=== PATIENT | female | born 1935 | race African-American/Black ===

== ENCOUNTER 2017-01-25 02:07 | Inpatient (IN) | payer MEDICARE, OTHER ==
[2017-01-25] VITALS (10 sets, daily range): BP systolic 130–210; BP diastolic 64–126
[~2017-01-25] VITALS: Ht 160 cm; Wt 76.8 kg
[~2017-01-25 02:07] MED LIST: AMLO10TA80 PO; GLYB5TAB7 PO
[2017-01-25] MEDS ORDERED: SODIUM CHLORIDE 0.9% 1,000 ML IV ONE (02:53)
[2017-01-25 03:27] LABS: BASOPHILS % 0.3 % (0.0-2.0); HEMATOCRIT. 28.3 % (36.0-48.0); HEMOGLOBIN. 8.8 g/dL (12.0-16.0); LYMPHOCYTES % 17.9 % (20.0-50.0); MEAN CORPUSCULAR HEMOGLOBIN 26.7 pg (28.0-32.0); MEAN CORPUSCULAR VOLUME 85.6 fL (81.0-99.0); MEAN PLATELET VOLUME 9.2 fl (7.4-10.4); MONOCYTES % 9.8 % (2.0-8.0); PLATELET 122 x1000/uL (130-400); RED BLOOD CELL COUNT 3.31 mill/uL (4.2-5.4); RED CELL DISTRIBUTION WIDTH 15.3 % (11.6-14.6)
[2017-01-25 03:35] LABS: CARBON DIOXIDE 23 mEq/L (21-32); CHLORIDE 115 mEq/L (98-107); TROPONIN I 0.05 ng/mL (0.00-0.04)
[2017-01-25 03:46] LABS: CLARITY URINE CLOUDY (CLEAR); COLOR URINE YELLOW (YELLOW); GLUCOSE URINE NEGATIVE (NEGATIVE); KETONES URINE NEGATIVE (NEGATIVE); LEUKOCYTE ESTERASE URINE NEGATIVE (NEGATIVE); NITRITE URINE POSITIVE (NEGATIVE); OCCULT BLOOD URINE 1+ (NEGATIVE); PH URINE 6.5 (4.5-8.0); PROTEIN URINE 3+ (NEGATIVE); SPECIFIC GRAVITY URINE 1.012 (1.005-1.030); UROBILINOGEN URINE 0.2 E.U./dL (0.2-1.0)
[2017-01-25] MEDS ORDERED: SODIUM CHLORIDE 0.9% 1,000 ML IV SCH (03:47)
[2017-01-25] MEDS ORDERED: ASPIRIN 325MG TABLET PO ONE (04:30)
[2017-01-25] MEDS ORDERED: DOCUSATE SODIUM 100MG CAPSULE PO PRN (07:45)
[2017-01-25] MEDS ORDERED: DIPHENHYDRAMINE 50MG/ML VIAL IV PRN (07:45)
[2017-01-25] MEDS ORDERED: MORPHINE SULFATE 4 MG/ML CPJ (NOT FOR IM USE) IV PRN (07:45)
[2017-01-25] MEDS ORDERED: NA PHOS,M-B/NA PHOS,DI-BA ENEMA 118ML PR PRN (07:45)
[2017-01-25] MEDS ORDERED: TRAMADOL 50MG TABLET PO PRN (07:45)
[2017-01-25] MEDS ORDERED: CLONIDINE 0.1MG TABLET PO PRN (07:45)
[2017-01-25] MEDS ORDERED: MAGNESIUM/ALUMINUM HYDROXIDE/SIMETHICONE 30ML UDC PO PRN (07:45)
[2017-01-25] MEDS ORDERED: NITROGLYCERIN 0.4MG TABLET SL SL PRN (07:45)
[2017-01-25] MEDS ORDERED: ONDANSETRON HCL 4MG/2ML VIAL IV PRN (07:45)
[2017-01-25] MEDS ORDERED: ACETAMINOPHEN 325MG TABLET PO PRN (07:45)
[2017-01-25] MEDS ORDERED: IPRATROPIUM/ALBUTEROL 0.5-3(2.5)MG/3ML NEB INH PRN (07:45)
[2017-01-25] MEDS ORDERED: ZOLPIDEM TARTRATE 5MG TABLET PO PRN (07:45)
[2017-01-25] MEDS ORDERED: GUAIFENESIN 200MG/10ML SUGAR FREE UDC PO PRN (07:45)
[2017-01-25] MEDS ORDERED: SODIUM POLYSTYRENE SULFONATE 15 G/60 ML BOT PO NR (08:00)
[2017-01-25] MEDS: INSULIN LISPRO 100 UNITS/ML SUBCUT SCH ×4 (08:00→21:18)
[2017-01-25] MEDS ORDERED: DEXTROSE 50% WATER 50ML SYRINGE IV PRN (08:00)
[2017-01-25 08:19] LABS: *AMPHETAMINES SCREEN URINE NEGATIVE (NEGATIVE); *BARBITURATES SCREEN URINE NEGATIVE (NEGATIVE); *BENZODIAZEPINES SCREEN URINE NEGATIVE (NEGATIVE); *COCAINE SCREEN URINE NEGATIVE (NEGATIVE); CANNABINOID URINE SCREEN NEGATIVE (NEGATIVE); METHADONE URINE SCREEN NEGATIVE (NEGATIVE); OPIATES URINE SCREEN NEGATIVE (NEGATIVE); PHENCYCLIDINE URINE SCREEN NEGATIVE (NEGATIVE)
[2017-01-25 08:39] LABS: FOLIC ACID (FOLATE) SERUM 18.2 ng/mL (>5.38)
[2017-01-25] MEDS: ENOXAPARIN 30MG/0.3ML SYR SUBCUT SCH (10:25)
[2017-01-25] MEDS: PANTOPRAZOLE SODIUM 40 MG/VIAL IV SCH (10:25)
[2017-01-25] MEDS: IPRATROPIUM/ALBUTEROL 0.5-3(2.5)MG/3ML NEB HHN SCH (11:00)
[2017-01-25] MEDS ORDERED: NIFEDIPINE XL 60MG TAB PO SCH (11:00)
[2017-01-25 12:24] LABS: CREATINE KINASE 109 IU/L (26-192)
[2017-01-25] MEDS: BLOOD SUGAR DIAGNOSTIC STRIP TEST SCH ×3 (12:38→21:13)
[2017-01-25] MEDS: METOPROLOL TARTRATE 50MG TABLET PO SCH ×3 (14:23→21:01)
[2017-01-25] MEDS: CLONIDINE 0.1MG TABLET PO SCH ×2 (14:24→22:12)
[2017-01-25 14:55] LABS: TROPONIN I 0.07 ng/mL (0.00-0.04)
[2017-01-25] MEDS: NIFEDIPINE XL 60MG TAB PO SCH (21:03)
[2017-01-25 23:05] LABS: CREATINE KINASE MB FRACTION 2.7 ng/mL (0.5-3.6); TROPONIN I 0.05 ng/mL (0.00-0.04)
[2017-01-26] VITALS (14 sets, daily range): BP systolic 112–147; BP diastolic 52–76
[2017-01-26] MEDS: IPRATROPIUM/ALBUTEROL 0.5-3(2.5)MG/3ML NEB HHN SCH ×7 (00:45→20:40)
[2017-01-26 05:24] LABS: BASOPHILS % 0.5 % (0.0-2.0); EOSINOPHILS % 2.9 % (0.0-5.0); HEMATOCRIT. 25.1 % (36.0-48.0); HEMOGLOBIN. 7.8 g/dL (12.0-16.0); LYMPHOCYTES % 42.9 % (20.0-50.0); MEAN CORPUSCULAR HEMOGLOBIN 26.5 pg (28.0-32.0); MEAN CORPUSCULAR VOLUME 85.7 fL (81.0-99.0); MEAN PLATELET VOLUME 9.8 fl (7.4-10.4); MONOCYTES % 12.1 % (2.0-8.0); NEUTROPHILS % 41.6 % (40.0-76.0); PLATELET 114 x1000/uL (130-400); RED BLOOD CELL COUNT 2.93 mill/uL (4.2-5.4); RED CELL DISTRIBUTION WIDTH 15.7 % (11.6-14.6)
[2017-01-26] MEDS: CLONIDINE 0.1MG TABLET PO SCH ×3 (05:30→22:00)
[2017-01-26] MEDS: BLOOD SUGAR DIAGNOSTIC STRIP TEST SCH ×4 (07:30→21:14)
[2017-01-26] MEDS: INSULIN LISPRO 100 UNITS/ML SUBCUT SCH ×4 (08:00→21:30)
[2017-01-26 08:14] LABS: PHOSPHORUS 4.3 mg/dL (2.5-4.9)
[2017-01-26] MEDS ORDERED: SODIUM POLYSTYRENE SULFONATE 15 G/60 ML BOT PO SCH (08:30)
[2017-01-26] MEDS: NIFEDIPINE XL 60MG TAB PO SCH ×2 (09:34→21:32)
[2017-01-26] MEDS: ASPIRIN 325MG EC TABLET PO SCH (09:35)
[2017-01-26] MEDS: PANTOPRAZOLE SODIUM 40 MG/VIAL IV SCH (09:35)
[2017-01-26] MEDS: ENOXAPARIN 30MG/0.3ML SYR SUBCUT SCH (09:35)
[2017-01-26 13:12] LABS: A/G RATIO 1.3 (0.7-1.7); ALPHA-1-GLOBULIN 0.2 g/dL (0.0-0.4); ALPHA-2-GLOBULIN 0.6 g/dL (0.4-1.0); GAMMA GLOBULINS 1.3 g/dL (0.4-1.8); M-SPIKE Not Observed g/dL (Not Observed)
[2017-01-26] MEDS: METOPROLOL TARTRATE 50MG TABLET PO SCH (21:11)
[2017-01-27] VITALS (13 sets, daily range): BP systolic 121–147; BP diastolic 59–87
[2017-01-27] MEDS: IPRATROPIUM/ALBUTEROL 0.5-3(2.5)MG/3ML NEB HHN SCH ×4 (04:40→20:13)
[2017-01-27] MEDS: CLONIDINE 0.1MG TABLET PO SCH ×3 (06:05→21:22)
[2017-01-27 06:20] LABS: COMPLEMENT C3 96 mg/dL (82-167)
[2017-01-27] MEDS: METOPROLOL TARTRATE 50MG TABLET PO SCH ×2 (06:47→21:23)
[2017-01-27] MEDS: INSULIN LISPRO 100 UNITS/ML SUBCUT SCH ×4 (08:00→21:33)
[2017-01-27] MEDS: BLOOD SUGAR DIAGNOSTIC STRIP TEST SCH ×4 (08:11→21:34)
[2017-01-27] MEDS: ENOXAPARIN 30MG/0.3ML SYR SUBCUT SCH (08:23)
[2017-01-27] MEDS: ASPIRIN 325MG EC TABLET PO SCH (08:23)
[2017-01-27] MEDS: PANTOPRAZOLE SODIUM 40 MG/VIAL IV SCH (08:23)
[2017-01-27] MEDS: NIFEDIPINE XL 60MG TAB PO SCH ×2 (08:23→21:22)
[2017-01-27 12:03] LABS: BASOPHILS % 0.4 % (0.0-2.0); EOSINOPHILS % 3.2 % (0.0-5.0); HEMATOCRIT. 24.3 % (36.0-48.0); HEMOGLOBIN. 7.6 g/dL (12.0-16.0); LYMPHOCYTES % 36.4 % (20.0-50.0); MEAN CORPUSCULAR HEMOGLOBIN 26.6 pg (28.0-32.0); MEAN CORPUSCULAR VOLUME 84.7 fL (81.0-99.0); MEAN PLATELET VOLUME 9.5 fl (7.4-10.4); MONOCYTES % 14.8 % (2.0-8.0); NEUTROPHILS % 45.2 % (40.0-76.0); PLATELET 115 x1000/uL (130-400); RED BLOOD CELL COUNT 2.86 mill/uL (4.2-5.4)
[2017-01-27 12:17] LABS: PHOSPHORUS 4.4 mg/dL (2.5-4.9)
[2017-01-27] MEDS ORDERED: PNEUMOCOCCAL 23-VAL P-SAC VAC 0.5 ML IM ONE (12:30)
[2017-01-27] MEDS ORDERED: INFLUENZA VIRUS VACCINE 0.5ML SYR IM ONE (12:30)
[2017-01-27] MEDS ORDERED: EPOETIN ALFA 4000UNITS/ML VIAL SUBCUT NR (13:00)
[2017-01-28] VITALS: BP 130/71
[2017-01-28 02:00] VITALS: BP 129/70
[2017-01-28 04:00] VITALS: BP 140/88
[2017-01-28] MEDS: CLONIDINE 0.1MG TABLET PO SCH (05:54)
[2017-01-28 06:00] VITALS: BP 132/68
[2017-01-28 06:33] LABS: HEMOGLOBIN. 7.7 g/dL (12.0-16.0); MEAN CORPUSCULAR HEMOGLOBIN 27.2 pg (28.0-32.0); MEAN CORPUSCULAR VOLUME 84.4 fL (81.0-99.0); MEAN PLATELET VOLUME 9.8 fl (7.4-10.4); PLATELET 109 x1000/uL (130-400); RED BLOOD CELL COUNT 2.84 mill/uL (4.2-5.4); RED CELL DISTRIBUTION WIDTH 15.2 % (11.6-14.6)
[2017-01-28 06:54] LABS: PHOSPHORUS 4.4 mg/dL (2.5-4.9)
[2017-01-28] MEDS: INSULIN LISPRO 100 UNITS/ML SUBCUT SCH ×2 (07:37→12:17)
[2017-01-28] MEDS: BLOOD SUGAR DIAGNOSTIC STRIP TEST SCH ×2 (07:37→12:13)
[2017-01-28 08:00] VITALS: BP 132/68
[2017-01-28] MEDS: ASPIRIN 325MG EC TABLET PO SCH (08:06)
[2017-01-28] MEDS: METOPROLOL TARTRATE 50MG TABLET PO SCH (08:07)
[2017-01-28] MEDS: NIFEDIPINE XL 60MG TAB PO SCH (08:07)
[2017-01-28] MEDS: IPRATROPIUM/ALBUTEROL 0.5-3(2.5)MG/3ML NEB HHN SCH (09:00)
[2017-01-28 10:04] VITALS: BP 98/67
[2017-01-28 11:38] LABS: PLATELET ESTIMATE SLIGHTLY DECREASED
[2017-01-29 14:16] LABS: ALBUMIN URINE 64.5 % (.); ALPHA-1-GLOBULIN URINE 2.2 % (.); ALPHA-2-GLOBULIN URINE 6.9 % (.); BETA GLOBULIN URINE 10.2 % (.); GAMMA GLOBULIN URINE 16.2 % (.); TOTAL PROTEIN RANDOM URINE 385.5 mg/dL (Not Estab.)
== END 2017-01-28 12:15 | disposition home or self-care (01) | DRG 683 ==
LOC: ER 02:36 → 5EST 03:49 → EDBEDREQTM 03:54 → EDBEDREQ 03:54 → ENRESERV 04:21
PROVIDERS: ADMIT Internal Medicine; ATTEND Internal Medicine
DX: N17.0 Acute kidney failure with tubular necrosis (principal); G45.9 Transient cerebral ischemic attack, unspecified; D61.818 Other pancytopenia; E11.22 Type 2 diabetes mellitus with diabetic chronic kidney disease; E11.649 Type 2 diabetes mellitus with hypoglycemia without coma; E11.65 Type 2 diabetes mellitus with hyperglycemia; E87.5 Hyperkalemia; I12.9 Hypertensive chronic kidney disease with stage 1 through stage 4 chronic kidney disease, or unspecified chronic kidney disease; D64.9 Anemia, unspecified; N18.9 Chronic kidney disease, unspecified; Z82.49 Family history of ischemic heart disease and other diseases of the circulatory system; Z88.0 Allergy status to penicillin; Z90.710 Acquired absence of both cervix and uterus
CPT/HCPCS: 36415; 70450; 70551; 71010; 76770; 80048; 80053; 80061; 80305; 81001; 82550; 82553; 82570; 82607; 82728; 82746; 82962; 83036; 83540; 83550; 83735; 84100; 84155; 84156; 84165; 84166; 84484; 85025; 86160; 90686; 90732; 93005; 93306; 93880; 94640; 96360; 97162; 99285; C9113; J0885; J1650; J1815; J7030; J7620

== ENCOUNTER 2018-07-03 13:20 | Inpatient (IN) | payer OTHER ==
[~2018-07-03] VITALS: Ht 160 cm; Wt 72.6 kg
[2018-07-03] MEDS: SEVELAMER CARBONATE 800 MG TABLET PO SCH (09:30)
[2018-07-03 14:23] LABS: HEMATOCRIT. 34.6 % (36.0-48.0); HEMOGLOBIN. 11.2 g/dL (12.0-16.0); MEAN CORPUSCULAR HEMOGLOBIN 28.2 pg (28.0-32.0); MEAN CORPUSCULAR VOLUME 87.3 fL (81.0-99.0); MEAN PLATELET VOLUME 9.1 fl (7.4-10.4); PLATELET 178 x1000/uL (130-400); RED BLOOD CELL COUNT 3.96 mill/uL (4.2-5.4); RED CELL DISTRIBUTION WIDTH 15.2 % (11.6-14.6)
[2018-07-03 14:25] LABS: CHLORIDE 93 mEq/L (98-107)
[2018-07-03 14:36] LABS: PLATELET ESTIMATE NORMAL
[2018-07-03] MEDS ORDERED: ASPIRIN 81MG TABLET PO ONE (15:15)
[2018-07-03] MEDS ORDERED: DILTIAZEM HCL 90MG TABLET PO ONE (16:00)
[2018-07-03] MEDS ORDERED: DILTIAZEM HCL 5MG/ML 5ML VIAL IV ONE ×2 (16:00→17:00)
[2018-07-03] MEDS ORDERED: CLONIDINE 0.1MG TABLET PO PRN (16:15)
[2018-07-03] MEDS ORDERED: MAGNESIUM/ALUMINUM HYDROXIDE/SIMETHICONE 30ML UDC PO PRN (16:15)
[2018-07-03] MEDS ORDERED: IPRATROPIUM/ALBUTEROL 0.5-3(2.5)MG/3ML NEB INH PRN (16:15)
[2018-07-03] MEDS ORDERED: GUAIFENESIN 200MG/10ML SUGAR FREE UDC PO PRN (16:15)
[2018-07-03] MEDS ORDERED: DOCUSATE SODIUM 100MG CAPSULE PO PRN (16:15)
[2018-07-03] MEDS ORDERED: LORAZEPAM 0.5MG TABLET PO PRN (16:15)
[2018-07-03] MEDS ORDERED: DEXTROSE 50% WATER 50ML SYRINGE IV PRN (16:15)
[2018-07-03] MEDS ORDERED: MORPHINE SULFATE 4 MG/ML CPJ (NOT FOR IM USE) IV PRN (16:15)
[2018-07-03] MEDS ORDERED: TRAMADOL 50MG TABLET PO PRN (16:15)
[2018-07-03] MEDS ORDERED: POTASSIUM CHLORIDE 20MEQ TABLET SR PO SCH (16:15)
[2018-07-03] MEDS ORDERED: NITROGLYCERIN 0.4MG TABLET SL SL PRN (16:15)
[2018-07-03] MEDS ORDERED: ZOLPIDEM TARTRATE 5MG TABLET PO PRN (16:15)
[2018-07-03] MEDS ORDERED: DIPHENHYDRAMINE 50MG/ML VIAL IV PRN (16:15)
[2018-07-03] MEDS ORDERED: ONDANSETRON HCL 4MG/2ML INJ IV PRN (16:15)
[2018-07-03] MEDS ORDERED: ACETAMINOPHEN 325MG TABLET PO PRN (16:15)
[2018-07-03 17:03] LABS: PARTIAL THROMBOPLASTIN TIME 26.9 sec (23.4-31.0); PROTHROMBIN TIME 10.3 sec (9.1-11.1)
[2018-07-03] MEDS: BLOOD SUGAR DIAGNOSTIC STRIP TEST SCH ×2 (17:26→21:15)
[2018-07-03] MEDS ORDERED: DILTIAZEM HCL 125 MG in DEXT 5% WATER 100 ML IV ONE (17:45)
[2018-07-03 22:30] VITALS: BP 145/83
[2018-07-03 23:00] VITALS: BP 145/83
[2018-07-03] MEDS ORDERED: ENOXAPARIN 80MG/0.8ML SYR SUBCUT SCH (23:00)
[2018-07-04] VITALS (11 sets, daily range): BP systolic 102–138; BP diastolic 52–69
[2018-07-04] MEDS ORDERED: GLYB (00:17)
[2018-07-04] MEDS: SILDENAFIL CITRATE 20MG TABLET PO SCH ×4 (01:08→21:36)
[2018-07-04] MEDS: DILTIAZEM HCL 60MG TABLET PO SCH ×2 (01:09→05:49)
[2018-07-04 01:27] LABS: CREATINE KINASE MB FRACTION 5.9 ng/mL (0.5-3.6)
[2018-07-04] MEDS: INSULIN LISPRO 100 UNITS/ML SUBCUT SCH ×5 (06:09→21:00)
[2018-07-04 06:39] LABS: CREATINE KINASE MB FRACTION 4.9 ng/mL (0.5-3.6)
[2018-07-04] MEDS: BLOOD SUGAR DIAGNOSTIC STRIP TEST SCH ×4 (08:25→21:32)
[2018-07-04] MEDS: SEVELAMER CARBONATE 800 MG TABLET PO SCH ×3 (08:26→17:39)
[2018-07-04] MEDS: FAMOTIDINE 20MG TABLET PO SCH (08:26)
[2018-07-04] MEDS: ASPIRIN 325MG EC TABLET PO SCH (08:26)
[2018-07-04] MEDS: FOLIC ACID/VITAMIN B COMP W-C TABLET PO SCH (08:26)
[2018-07-04] MEDS: METOPROLOL TARTRATE 50MG TABLET PO SCH (21:00)
[2018-07-04] MEDS: ATORVASTATIN CALCIUM 20MG TABLET PO SCH (21:32)
[2018-07-05] VITALS (10 sets, daily range): BP systolic 106–167; BP diastolic 31–88
[2018-07-05] MEDS: SILDENAFIL CITRATE 20MG TABLET PO SCH ×3 (06:00→21:09)
[2018-07-05] MEDS: SEVELAMER CARBONATE 800 MG TABLET PO SCH ×3 (08:00→17:19)
[2018-07-05] MEDS: INSULIN LISPRO 100 UNITS/ML SUBCUT SCH ×4 (08:00→20:59)
[2018-07-05] MEDS: BLOOD SUGAR DIAGNOSTIC STRIP TEST SCH ×4 (08:40→20:59)
[2018-07-05] MEDS: FOLIC ACID/VITAMIN B COMP W-C TABLET PO SCH (08:41)
[2018-07-05] MEDS: ASPIRIN 325MG EC TABLET PO SCH (08:41)
[2018-07-05] MEDS: METOPROLOL TARTRATE 50MG TABLET PO SCH ×2 (08:41→21:00)
[2018-07-05] MEDS: FAMOTIDINE 20MG TABLET PO SCH (08:41)
[2018-07-05 09:17] LABS: BASOPHILS % 0.4 % (0.0-2.0); EOSINOPHILS % 2.2 % (0.0-5.0); HEMATOCRIT. 32.2 % (36.0-48.0); HEMOGLOBIN. 10.5 g/dL (12.0-16.0); LYMPHOCYTES % 39.7 % (20.0-50.0); MEAN CORPUSCULAR HEMOGLOBIN 28.6 pg (28.0-32.0); MEAN CORPUSCULAR VOLUME 87.6 fL (81.0-99.0); MEAN PLATELET VOLUME 9.1 fl (7.4-10.4); MONOCYTES % 13.5 % (2.0-8.0); NEUTROPHILS % 44.2 % (40.0-76.0); PLATELET 133 x1000/uL (130-400); RED BLOOD CELL COUNT 3.68 mill/uL (4.2-5.4); RED CELL DISTRIBUTION WIDTH 15.8 % (11.6-14.6)
[2018-07-05 09:32] LABS: CHLORIDE 96 mEq/L (98-107)
[2018-07-05 09:43] LABS: PHOSPHORUS 2.7 mg/dL (2.5-4.9)
[2018-07-05 09:45] LABS: CREATINE KINASE 60 IU/L (26-192)
[2018-07-05 09:48] LABS: CREATINE KINASE MB FRACTION 1.3 ng/mL (0.5-3.6)
[2018-07-05] MEDS ORDERED: HEPARIN SODIUM 1,000 UNIT/1ML VIAL IV ONE (12:00)
[2018-07-05] MEDS ORDERED: NICARDIPINE 100MCG/ML 10ML VIAL (CATH LAB) IV ONE ×2 (12:00)
[2018-07-05 12:07] LABS: HEMATOCRIT 32.8 % (36.0-48.0); HEMOGLOBIN 10.6 g/dL (12.0-16.0); MEAN CORPUSCULAR HEMOGLOBIN 28.5 pg (28.0-32.0); MEAN CORPUSCULAR VOLUME 88.4 fL (81.0-99.0); PLATELET 129 x1000/uL (130-400); RED BLOOD CELL COUNT 3.71 mill/uL (4.2-5.4); RED CELL DISTRIBUTION WIDTH 15.3 % (11.6-14.6)
[2018-07-05] MEDS ORDERED: LIDOCAINE HCL 1% 20ML VIAL (Pyxis) INJ ONE (13:40)
[2018-07-05] MEDS ORDERED: ASPIRIN/SOD BICARB/CITRIC ACID 324MG TAB EFF ONE (13:40)
[2018-07-05] MEDS ORDERED: IODIXANOL 320MG/ML 100 ML BOTTLE IV ONE (13:41)
[2018-07-05] MEDS ORDERED: IOHEXOL-300 100 ML BOTTLE ONE (13:41)
[2018-07-05] MEDS ORDERED: FENTANYL CITRATE/PF 50MCG/ML 2ML VIAL ONE (14:01)
[2018-07-05] MEDS ORDERED: MIDAZOLAM HCL 2 MG/2 ML VIAL ONE (14:02)
[2018-07-05] MEDS ORDERED: ACETAMINOPHEN 325MG TABLET PO PRN (15:00)
[2018-07-05] MEDS ORDERED: ATROPINE SULFATE 1MG/10ML SYR IV PRN (15:00)
[2018-07-05] MEDS ORDERED: ONDANSETRON HCL 4MG/2ML INJ IV PRN (15:00)
[2018-07-05] MEDS ORDERED: MORPHINE SULFATE 4 MG/ML CPJ (NOT FOR IM USE) IV PRN (15:00)
[2018-07-05] MEDS: ATORVASTATIN CALCIUM 20MG TABLET PO SCH (21:09)
[2018-07-06] VITALS (9 sets, daily range): BP systolic 116–158; BP diastolic 35–70
[2018-07-06] MEDS: INSULIN LISPRO 100 UNITS/ML SUBCUT SCH ×2 (06:05→11:37)
[2018-07-06] MEDS: BLOOD SUGAR DIAGNOSTIC STRIP TEST SCH ×2 (06:05→11:37)
[2018-07-06] MEDS: SILDENAFIL CITRATE 20MG TABLET PO SCH (06:11)
[2018-07-06 07:28] LABS: HEMATOCRIT. 33.6 % (36.0-48.0); HEMOGLOBIN. 11.1 g/dL (12.0-16.0); MEAN CORPUSCULAR HEMOGLOBIN 29.1 pg (28.0-32.0); PLATELET 136 x1000/uL (130-400); RED BLOOD CELL COUNT 3.82 mill/uL (4.2-5.4); RED CELL DISTRIBUTION WIDTH 15.5 % (11.6-14.6)
[2018-07-06] MEDS: FAMOTIDINE 20MG TABLET PO SCH (08:57)
[2018-07-06] MEDS: SEVELAMER CARBONATE 800 MG TABLET PO SCH ×2 (08:57→12:46)
[2018-07-06] MEDS: FOLIC ACID/VITAMIN B COMP W-C TABLET PO SCH (08:57)
[2018-07-06] MEDS: METOPROLOL TARTRATE 50MG TABLET PO SCH (08:58)
[2018-07-06] MEDS: ASPIRIN 325MG EC TABLET PO SCH (09:04)
[2018-07-07 07:05] LABS: NUCLEATED RED BLOOD CELLS 1 /100 WBC; PLATELET ESTIMATE NORMAL
== END 2018-07-06 14:16 | disposition home or self-care (01) | DRG 280 ==
LOC: ER 13:20 → 5EST 15:51 → SUPCPDRO 16:00 → ENRESERV 20:49 → 3WST 07-05 15:30
PROVIDERS: ADMIT Internal Medicine; ATTEND Internal Medicine
PROC: 5A1D70Z Performance of Urinary Filtration, Intermittent, Less than 6 Hours Per Day (ICD-10-PCS; 2018-07-04)
PROC: 4A023N7 Measurement of Cardiac Sampling and Pressure, Left Heart, Percutaneous Approach (ICD-10-PCS; principal; 2018-07-05)
PROC: B2111ZZ Fluoroscopy of Multiple Coronary Arteries using Low Osmolar Contrast (ICD-10-PCS; 2018-07-05)
DX: I21.4 Non-ST elevation (NSTEMI) myocardial infarction (principal); N18.6 End stage renal disease; I12.0 Hypertensive chronic kidney disease with stage 5 chronic kidney disease or end stage renal disease; I48.0 Paroxysmal atrial fibrillation; D70.9 Neutropenia, unspecified; E78.00 Pure hypercholesterolemia, unspecified; E87.6 Hypokalemia; D63.8 Anemia in other chronic diseases classified elsewhere; E11.22 Type 2 diabetes mellitus with diabetic chronic kidney disease; I27.20 Pulmonary hypertension, unspecified; Z96.649 Presence of unspecified artificial hip joint; E78.5 Hyperlipidemia, unspecified; M79.89 Other specified soft tissue disorders; Z79.4 Long term (current) use of insulin; Z82.49 Family history of ischemic heart disease and other diseases of the circulatory system; Z86.73 Personal history of transient ischemic attack (TIA), and cerebral infarction without residual deficits; Z87.891 Personal history of nicotine dependence; Z90.710 Acquired absence of both cervix and uterus; Z99.2 Dependence on renal dialysis; Z88.0 Allergy status to penicillin; Z90.722 Acquired absence of ovaries, bilateral; Z79.899 Other long term (current) drug therapy; Z90.79 Acquired absence of other genital organ(s); Z72.89 Other problems related to lifestyle
CPT/HCPCS: 36415; 70551; 71045; 80048; 80051; 80061; 82550; 82553; 82962; 83036; 83735; 84100; 84443; 84484; 85027; 85379; 93005; 93306; 93458; 93970; 96372; 96374; 99291; C1769; C1887; C1893; J1644; J1650; J1815; J2250; J2270; J3010; J3490; J7060; Q9967

== ENCOUNTER 2018-12-24 02:22 | Emergency (ER) | payer OTHER ==
[~2018-12-24] VITALS: Ht 160 cm; Wt 70.0 kg
[~2018-12-24 02:22] MED LIST changes: -AMLO10TA80 PO; +GLYB; -GLYB5TAB7 PO
[2018-12-24 03:36] LABS: BASOPHILS % 0.6 % (0.0-2.0); EOSINOPHILS % 0.5 % (0.0-5.0); HEMATOCRIT. 31.1 % (36.0-48.0); HEMOGLOBIN. 10.2 g/dL (12.0-16.0); LYMPHOCYTES % 15.9 % (20.0-50.0); MEAN CORPUSCULAR VOLUME 88.9 fL (81.0-99.0); MEAN PLATELET VOLUME 8.3 fl (7.4-10.4); MONOCYTES % 14.7 % (2.0-8.0); NEUTROPHILS % 68.3 % (40.0-76.0); PLATELET 130 x1000/uL (130-400); RED CELL DISTRIBUTION WIDTH 16.2 % (11.6-14.6)
[2018-12-24 03:41] LABS: CHLORIDE 105 mEq/L (98-107)
[2018-12-24 03:44] LABS: PROTHROMBIN TIME 10.3 sec (9.6-11.0)
[2018-12-24] MEDS ORDERED: DEXTROSE 50% WATER 50ML SYRINGE IV ONE ×2 (04:06→04:15)
[2018-12-24 13:00] VITALS: BP 147/51
== END 2018-12-24 14:36 | disposition home or self-care (01) ==
LOC: ER 02:22
DX: E11.40 Type 2 diabetes mellitus with diabetic neuropathy, unspecified (principal); E11.649 Type 2 diabetes mellitus with hypoglycemia without coma; I12.0 Hypertensive chronic kidney disease with stage 5 chronic kidney disease or end stage renal disease; E11.22 Type 2 diabetes mellitus with diabetic chronic kidney disease; N18.6 End stage renal disease; Z99.2 Dependence on renal dialysis; Z88.0 Allergy status to penicillin
CPT/HCPCS: 36415; 82962; 83735; 93005; 96374; 99283

== ENCOUNTER 2019-02-05 14:32 | Inpatient (IN) | payer OTHER ==
[~2019-02-05] VITALS: Ht 160 cm; Wt 68.9 kg
[2019-02-05] MEDS ORDERED: SODIUM CHLORIDE 0.9% 1,000 ML IV ONE (15:09)
[2019-02-05] MEDS ORDERED: DILTIAZEM HCL 5MG/ML 5ML VIAL IV ONE (15:15)
[2019-02-05 15:27] LABS: HEMATOCRIT. 36.4 % (36.0-48.0); HEMOGLOBIN. 11.8 g/dL (12.0-16.0); MEAN CORPUSCULAR HEMOGLOBIN 28.9 pg (28.0-32.0); MEAN PLATELET VOLUME 8.4 fl (7.4-10.4); PLATELET 114 x1000/uL (130-400); RED BLOOD CELL COUNT 4.09 mill/uL (4.2-5.4)
[2019-02-05 15:34] LABS: CHLORIDE 99 mEq/L (98-107)
[2019-02-05 15:54] LABS: PLATELET ESTIMATE DECREASED
[2019-02-05] MEDS ORDERED: DILTIAZEM HCL 60MG TABLET PO ONE (16:00)
[2019-02-05] MEDS ORDERED: ENOXAPARIN 60MG/0.6ML SYR SUBCUT ONE (16:30)
[2019-02-05 17:50] VITALS: BP 116/68
[2019-02-05 18:00] VITALS: BP 116/68
[2019-02-05] MEDS ORDERED: HYDROCODONE/ACETAMINOPHEN 5/325MG TABLET PO PRN (18:15)
[2019-02-05] MEDS ORDERED: ENOXAPARIN 40MG/0.4ML SYR SUBCUT SCH (18:15)
[2019-02-05] MEDS ORDERED: LORAZEPAM 2MG/ML CPJ IV PRN (18:15)
[2019-02-05] MEDS ORDERED: DOCUSATE SODIUM 100MG CAPSULE PO PRN (18:15)
[2019-02-05] MEDS ORDERED: DILTIAZEM HCL 30MG TABLET PO PRN (18:15)
[2019-02-05] MEDS ORDERED: ONDANSETRON HCL 4MG/2ML INJ IV PRN (18:15)
[2019-02-05] MEDS ORDERED: MAGNESIUM/ALUMINUM HYDROXIDE/SIMETHICONE 30ML UDC PO PRN (18:15)
[2019-02-05] MEDS ORDERED: MORPHINE SULFATE 2 MG/ML CPJ (NOT FOR IM USE) IV PRN (18:15)
[2019-02-05] MEDS ORDERED: CLONIDINE 0.1MG TABLET PO PRN (18:15)
[2019-02-05] MEDS ORDERED: ACETAMINOPHEN 325MG TABLET PO PRN (18:15)
[2019-02-05 20:00] VITALS: BP 137/64
[2019-02-05] MEDS ORDERED: ENOXAPARIN 30MG/0.3ML SYR SUBCUT SCH (20:00)
[2019-02-05] MEDS ORDERED: DEXTROSE 50% WATER 50ML SYRINGE IV PRN (21:30)
[2019-02-06 00:02] VITALS: BP 126/66
[2019-02-06 01:02] LABS: CREATINE KINASE MB FRACTION 6.5 ng/mL (0.5-3.6)
[2019-02-06 04:00] VITALS: BP 117/59
[2019-02-06] MEDS: INSULIN LISPRO 100 UNITS/ML SUBCUT SCH ×4 (05:48→20:42)
[2019-02-06] MEDS: BLOOD SUGAR DIAGNOSTIC STRIP TEST SCH ×4 (05:48→20:41)
[2019-02-06 08:00] VITALS: BP 117/58
[2019-02-06] MEDS ORDERED: ENOXAPARIN 30MG/0.3ML SYR SUBCUT SCH ×2 (09:00→10:15)
[2019-02-06] MEDS: ASPIRIN 81MG EC TABLET PO SCH (10:15)
[2019-02-06] MEDS: METOPROLOL TARTRATE 25MG TABLET PO SCH ×2 (12:23→21:02)
[2019-02-06 13:02] LABS: HEMOGLOBIN. 10.8 g/dL (12.0-16.0); MEAN CORPUSCULAR HEMOGLOBIN 29.2 pg (28.0-32.0); MEAN CORPUSCULAR VOLUME 89.3 fL (81.0-99.0); MEAN PLATELET VOLUME 9.3 fl (7.4-10.4); PLATELET 115 x1000/uL (130-400); RED BLOOD CELL COUNT 3.69 mill/uL (4.2-5.4); RED CELL DISTRIBUTION WIDTH 15.2 % (11.6-14.6)
[2019-02-06 13:06] LABS: CHLORIDE 102 mEq/L (98-107)
[2019-02-06 13:10] VITALS: BP 121/61
[2019-02-06 13:14] LABS: LDL CHOLESTEROL 103 mg/dL (5-100)
[2019-02-06 13:15] LABS: CREATINE KINASE 83 IU/L (26-192); CREATINE KINASE MB FRACTION 3.2 ng/mL (0.5-3.6)
[2019-02-06 13:16] LABS: HDL CHOLESTEROL 89 mg/dL (40-59)
[2019-02-06 13:20] LABS: ATYPICAL LYMPHOCYTES 1; PLATELET ESTIMATE DECREASED
[2019-02-06 16:50] VITALS: BP 128/62
[2019-02-06] MEDS: APIXABAN 2.5 MG TABLET PO SCH (17:43)
[2019-02-06 20:24] VITALS: BP 126/60
[2019-02-07] VITALS: BP 133/70
[2019-02-07 04:00] VITALS: BP 156/73
[2019-02-07 06:34] LABS: HEMATOCRIT. 32.7 % (36.0-48.0); HEMOGLOBIN. 10.7 g/dL (12.0-16.0); MEAN CORPUSCULAR HEMOGLOBIN 29.1 pg (28.0-32.0); MEAN CORPUSCULAR VOLUME 88.6 fL (81.0-99.0); MEAN PLATELET VOLUME 9.2 fl (7.4-10.4); PLATELET 131 x1000/uL (130-400); RED BLOOD CELL COUNT 3.69 mill/uL (4.2-5.4); RED CELL DISTRIBUTION WIDTH 14.5 % (11.6-14.6)
[2019-02-07] MEDS: INSULIN LISPRO 100 UNITS/ML SUBCUT SCH ×3 (06:43→17:40)
[2019-02-07] MEDS: BLOOD SUGAR DIAGNOSTIC STRIP TEST SCH ×3 (06:43→17:10)
[2019-02-07 08:00] VITALS: BP 139/62
[2019-02-07 08:39] LABS: NUCLEATED RED BLOOD CELLS 3 /100 WBC; PLATELET ESTIMATE NORMAL
[2019-02-07 08:44] LABS: CHLORIDE 100 mEq/L (98-107)
[2019-02-07] MEDS: APIXABAN 2.5 MG TABLET PO SCH ×2 (08:56→17:00)
[2019-02-07] MEDS: METOPROLOL TARTRATE 25MG TABLET PO SCH (08:57)
[2019-02-07] MEDS: ASPIRIN 81MG EC TABLET PO SCH (08:59)
[2019-02-07 09:02] LABS: CREATINE KINASE 66 IU/L (26-192)
[2019-02-07 09:06] LABS: LDL CHOLESTEROL 96 mg/dL (5-100); PHOSPHORUS 4.9 mg/dL (2.5-4.9)
[2019-02-07 09:08] LABS: HDL CHOLESTEROL 85 mg/dL (40-59)
[2019-02-07 09:12] LABS: CREATINE KINASE MB FRACTION 1.3 ng/mL (0.5-3.6)
[2019-02-07 15:26] VITALS: BP 137/60
[2019-02-07] MEDS ORDERED: GLYB5TAB7 PO (16:53)
== END 2019-02-07 18:05 | disposition home or self-care (01) | DRG 280 ==
LOC: ER 14:32 → 8WST 16:21 → ENRESERV 16:55
PROVIDERS: ADMIT Hospitalist; ATTEND Hospitalist
PROC: 5A1D70Z Performance of Urinary Filtration, Intermittent, Less than 6 Hours Per Day (ICD-10-PCS; principal; 2019-02-07)
DX: I21.4 Non-ST elevation (NSTEMI) myocardial infarction (principal); N18.6 End stage renal disease; I12.0 Hypertensive chronic kidney disease with stage 5 chronic kidney disease or end stage renal disease; D61.818 Other pancytopenia; N25.81 Secondary hyperparathyroidism of renal origin; I48.0 Paroxysmal atrial fibrillation; D63.1 Anemia in chronic kidney disease; E87.6 Hypokalemia; I27.20 Pulmonary hypertension, unspecified; E11.22 Type 2 diabetes mellitus with diabetic chronic kidney disease; I95.9 Hypotension, unspecified; E78.5 Hyperlipidemia, unspecified; F10.10 Alcohol abuse, uncomplicated; I35.0 Nonrheumatic aortic (valve) stenosis; Z82.49 Family history of ischemic heart disease and other diseases of the circulatory system; Z83.3 Family history of diabetes mellitus; I25.2 Old myocardial infarction; Z87.891 Personal history of nicotine dependence; Z90.5 Acquired absence of kidney; Z90.710 Acquired absence of both cervix and uterus; Z99.2 Dependence on renal dialysis; Z88.0 Allergy status to penicillin
CPT/HCPCS: 36415; 71045; 80061; 82550; 82553; 82962; 83036; 83735; 83880; 84100; 84439; 84443; 84484; 93005; 93306; 93970; 97161; 99291; J1650; J3490; J7030

== ENCOUNTER 2019-06-26 10:46 | Inpatient (IN) | payer OTHER ==
[~2019-06-26] VITALS: Ht 160 cm; Wt 72.6 kg
[~2019-06-26 10:46] MED LIST changes: -GLYB; +GLYB5TAB7 PO
[2019-06-26] MEDS ORDERED: SODIUM CHLORIDE 0.9% 500 ML IV ONE (10:57)
[2019-06-26] MEDS ORDERED: AMIODARONE HCL 150 MG in DEXT 5% WATER 100 ML IV ONE (11:30)
[2019-06-26 11:39] LABS: BASOPHILS % 0.7 % (0.0-2.0); EOSINOPHILS % 3.6 % (0.0-5.0); HEMATOCRIT. 30.3 % (36.0-48.0); HEMOGLOBIN. 9.8 g/dL (12.0-16.0); LYMPHOCYTES % 33.6 % (20.0-50.0); MEAN CORPUSCULAR VOLUME 89.2 fL (81.0-99.0); MEAN PLATELET VOLUME 8.6 fl (7.4-10.4); MONOCYTES % 9.7 % (2.0-8.0); NEUTROPHILS % 52.4 % (40.0-76.0); PLATELET 151 x1000/uL (130-400); RED BLOOD CELL COUNT 3.39 mill/uL (4.2-5.4); RED CELL DISTRIBUTION WIDTH 16.1 % (11.6-14.6)
[2019-06-26 11:40] LABS: CHLORIDE 105 mEq/L (98-107)
[2019-06-26] MEDS ORDERED: AMIODARONE HCL 900 MG in DEXT 5% WATER 500 ML IV ONE (12:15)
[2019-06-26] MEDS ORDERED: AMIODARONE HCL 900 MG in DEXT 5% WATER 482 ML IV ONE (12:15)
[2019-06-26] MEDS ORDERED: DOCUSATE SODIUM 100MG CAPSULE PO PRN (12:45)
[2019-06-26] MEDS ORDERED: MAGNESIUM/ALUMINUM HYDROXIDE/SIMETHICONE 30ML UDC PO PRN (12:45)
[2019-06-26] MEDS ORDERED: CLONIDINE 0.1MG TABLET PO PRN (12:45)
[2019-06-26] MEDS ORDERED: TRAMADOL 50MG TABLET PO PRN (12:45)
[2019-06-26] MEDS ORDERED: ZOLPIDEM TARTRATE 5MG TABLET PO PRN (12:45)
[2019-06-26] MEDS ORDERED: DEXTROSE 50% WATER 50ML SYRINGE IV PRN (12:45)
[2019-06-26] MEDS ORDERED: GUAIFENESIN 200MG/10ML SUGAR FREE UDC PO PRN (12:45)
[2019-06-26] MEDS ORDERED: MORPHINE SULFATE 2 MG/ML CPJ (NOT FOR IM USE) IV PRN (12:45)
[2019-06-26] MEDS ORDERED: ACETAMINOPHEN 325MG TABLET PO PRN (12:45)
[2019-06-26] MEDS ORDERED: ONDANSETRON HCL 4MG/2ML INJ IV PRN (12:45)
[2019-06-26] MEDS ORDERED: DIPHENHYDRAMINE 50MG/ML VIAL IV PRN (12:45)
[2019-06-26] MEDS ORDERED: IPRATROPIUM/ALBUTEROL 0.5-3(2.5)MG/3ML NEB NEB PRN (12:45)
[2019-06-26] MEDS ORDERED: NITROGLYCERIN 0.4MG TABLET SL SL PRN (12:45)
[2019-06-26] MEDS ORDERED: SODIUM POLYSTYRENE SULFONATE 15 G/60 ML BOT PO NR (14:00)
[2019-06-26] MEDS ORDERED: SEVELAMER CARBONATE 800 MG TABLET PO SCH (14:00)
[2019-06-26] MEDS: BLOOD SUGAR DIAGNOSTIC STRIP TEST SCH ×2 (14:37→21:10)
[2019-06-26] MEDS: INSULIN LISPRO 100 UNITS/ML SUBCUT SCH ×3 (14:43→21:09)
[2019-06-26 17:55] LABS: CREATINE KINASE MB FRACTION 1.5 ng/mL (0.5-3.6)
[2019-06-26] MEDS ORDERED: APIXABAN 5 MG TABLET PO SCH ×2 (18:00)
[2019-06-26] MEDS: AMIODARONE HCL 200 MG TABLET PO SCH (21:10)
[2019-06-26] MEDS: APIXABAN 2.5 MG TABLET PO SCH (21:10)
[2019-06-26] MEDS: SEVELAMER CARBONATE 800 MG TABLET PO SCH (21:11)
[2019-06-26 21:40] VITALS: BP 151/66
[2019-06-26 22:00] VITALS: BP 176/82
[2019-06-26 22:08] VITALS: BP 149/76
[2019-06-26 22:16] VITALS: BP 148/69
[2019-06-26 23:47] LABS: CREATINE KINASE MB FRACTION 1.6 ng/mL (0.5-3.6)
[2019-06-27] VITALS (12 sets, daily range): BP systolic 113–167; BP diastolic 54–91
[2019-06-27] MEDS: BLOOD SUGAR DIAGNOSTIC STRIP TEST SCH ×4 (05:31→20:12)
[2019-06-27 06:46] LABS: BASOPHILS % 0.4 % (0.0-2.0); HEMATOCRIT. 24.5 % (36.0-48.0); HEMOGLOBIN. 8.2 g/dL (12.0-16.0); LYMPHOCYTES % 28.3 % (20.0-50.0); MEAN CORPUSCULAR VOLUME 87.3 fL (81.0-99.0); MEAN PLATELET VOLUME 8.6 fl (7.4-10.4); MONOCYTES % 10.3 % (2.0-8.0); PLATELET 139 x1000/uL (130-400); RED BLOOD CELL COUNT 2.81 mill/uL (4.2-5.4); RED CELL DISTRIBUTION WIDTH 16.1 % (11.6-14.6)
[2019-06-27 07:20] LABS: PHOSPHORUS 5.4 mg/dL (2.5-4.9)
[2019-06-27] MEDS: INSULIN LISPRO 100 UNITS/ML SUBCUT SCH ×4 (07:20→20:13)
[2019-06-27] MEDS ORDERED: ASPIRIN 81MG EC TABLET PO SCH (09:00)
[2019-06-27] MEDS: APIXABAN 2.5 MG TABLET PO SCH ×2 (09:45→17:18)
[2019-06-27] MEDS: FOLIC ACID/VITAMIN B COMP W-C TABLET PO SCH (09:45)
[2019-06-27] MEDS: AMIODARONE HCL 200 MG TABLET PO SCH ×2 (09:45→17:18)
[2019-06-27] MEDS: SEVELAMER CARBONATE 800 MG TABLET PO SCH ×3 (09:45→17:18)
[2019-06-27] MEDS: FAMOTIDINE 20MG TABLET PO SCH (09:45)
[2019-06-27] MEDS: EPOETIN ALFA 4000UNITS/ML VIAL SUBCUT SCH (09:47)
[2019-06-27] MEDS ORDERED: GLIP5TAB12 MT (18:11)
[2019-06-27] MEDS ORDERED: EPOETIN ALFA 10000UNITS/ML VIAL SUBCUT SCH (21:00)
[2019-06-28] VITALS (12 sets, daily range): BP systolic 111–169; BP diastolic 55–73
[2019-06-28] MEDS: INSULIN LISPRO 100 UNITS/ML SUBCUT SCH ×4 (06:24→21:00)
[2019-06-28] MEDS: BLOOD SUGAR DIAGNOSTIC STRIP TEST SCH ×4 (06:24→20:09)
[2019-06-28 07:40] LABS: HEMATOCRIT. 27.8 % (36.0-48.0); HEMOGLOBIN. 9.4 g/dL (12.0-16.0); MEAN CORPUSCULAR HEMOGLOBIN 29.3 pg (28.0-32.0); MEAN CORPUSCULAR VOLUME 87.1 fL (81.0-99.0); MEAN PLATELET VOLUME 8.8 fl (7.4-10.4); PLATELET 143 x1000/uL (130-400); RED BLOOD CELL COUNT 3.19 mill/uL (4.2-5.4); RED CELL DISTRIBUTION WIDTH 15.8 % (11.6-14.6)
[2019-06-28 07:44] LABS: PHOSPHORUS 4.1 mg/dL (2.5-4.9)
[2019-06-28] MEDS: FOLIC ACID/VITAMIN B COMP W-C TABLET PO SCH (08:35)
[2019-06-28] MEDS: FAMOTIDINE 20MG TABLET PO SCH (08:35)
[2019-06-28] MEDS: SEVELAMER CARBONATE 800 MG TABLET PO SCH ×3 (08:35→17:51)
[2019-06-28] MEDS: APIXABAN 2.5 MG TABLET PO SCH ×2 (08:35→17:50)
[2019-06-28] MEDS: AMIODARONE HCL 200 MG TABLET PO SCH ×2 (08:35→17:50)
[2019-06-28 12:56] LABS: HEPATITIS B SURFACE ANTIGEN NEGATIVE
[2019-06-28 13:26] LABS: HEPATITIS A AB IGM NEGATIVE (NEGATIVE)
[2019-06-28 15:38] LABS: PLATELET ESTIMATE NORMAL
[2019-06-28] MEDS: EPOETIN ALFA 4000UNITS/ML VIAL SUBCUT SCH (21:00)
[2019-06-29] VITALS (9 sets, daily range): BP systolic 122–158; BP diastolic 58–71
[2019-06-29] MEDS: BLOOD SUGAR DIAGNOSTIC STRIP TEST SCH ×2 (06:24→11:50)
[2019-06-29 06:34] LABS: HEMOGLOBIN. 9.6 g/dL (12.0-16.0); MEAN CORPUSCULAR HEMOGLOBIN 28.9 pg (28.0-32.0); MEAN CORPUSCULAR VOLUME 87.4 fL (81.0-99.0); MEAN PLATELET VOLUME 8.5 fl (7.4-10.4); PLATELET 145 x1000/uL (130-400); RED BLOOD CELL COUNT 3.31 mill/uL (4.2-5.4); RED CELL DISTRIBUTION WIDTH 15.8 % (11.6-14.6)
[2019-06-29 06:50] LABS: CHLORIDE 102 mEq/L (98-107)
[2019-06-29 06:55] LABS: PHOSPHORUS 4.5 mg/dL (2.5-4.9)
[2019-06-29] MEDS: INSULIN LISPRO 100 UNITS/ML SUBCUT SCH ×2 (07:20→13:06)
[2019-06-29] MEDS: FAMOTIDINE 20MG TABLET PO SCH (08:43)
[2019-06-29] MEDS: AMIODARONE HCL 200 MG TABLET PO SCH ×2 (08:43→16:19)
[2019-06-29] MEDS: SEVELAMER CARBONATE 800 MG TABLET PO SCH ×3 (08:43→16:19)
[2019-06-29] MEDS: APIXABAN 2.5 MG TABLET PO SCH ×2 (08:43→16:19)
[2019-06-29] MEDS: FOLIC ACID/VITAMIN B COMP W-C TABLET PO SCH (08:43)
[2019-06-29] MEDS ORDERED: SODIUM POLYSTYRENE SULFONATE 15 G/60 ML BOT PO NR (10:00)
[2019-06-29 10:25] LABS: PLATELET ESTIMATE NORMAL
== END 2019-06-29 16:39 | disposition home or self-care (01) | DRG 308 ==
LOC: ER 10:46 → 3WST 12:28 → ENRESERV 20:59
PROVIDERS: ADMIT Internal Medicine; ATTEND Internal Medicine
PROC: 5A1D70Z Performance of Urinary Filtration, Intermittent, Less than 6 Hours Per Day (ICD-10-PCS; principal; 2019-06-26)
PROC: 5A1D70Z Performance of Urinary Filtration, Intermittent, Less than 6 Hours Per Day (ICD-10-PCS; 2019-06-29)
DX: I48.0 Paroxysmal atrial fibrillation (principal); N18.6 End stage renal disease; N25.81 Secondary hyperparathyroidism of renal origin; I12.0 Hypertensive chronic kidney disease with stage 5 chronic kidney disease or end stage renal disease; I95.9 Hypotension, unspecified; D63.8 Anemia in other chronic diseases classified elsewhere; D72.819 Decreased white blood cell count, unspecified; E11.22 Type 2 diabetes mellitus with diabetic chronic kidney disease; E87.5 Hyperkalemia; R74.0 Nonspecific elevation of levels of transaminase and lactic acid dehydrogenase [LDH]; Z79.01 Long term (current) use of anticoagulants; Z99.2 Dependence on renal dialysis; I25.2 Old myocardial infarction; Z82.49 Family history of ischemic heart disease and other diseases of the circulatory system; Z83.3 Family history of diabetes mellitus; Z91.19 Patient's noncompliance with other medical treatment and regimen; Z79.4 Long term (current) use of insulin; Z88.0 Allergy status to penicillin; Z79.899 Other long term (current) drug therapy
CPT/HCPCS: 36415; 71045; 80048; 80053; 80061; 82550; 82553; 82962; 83036; 83735; 83880; 84100; 84484; 85025; 85379; 86705; 86709; 86803; 87340; 93005; 93306; 93970; 96365; 97162; 99291; J0282; J0885; J1815; J7030; J7060

== ENCOUNTER 2019-07-18 09:46 | Inpatient (IN) | payer MEDICARE, OTHER ==
[~2019-07-18] VITALS: Ht 158.8 cm; Wt 74.8 kg
[~2019-07-18 09:46] MED LIST changes: +GLIP5TAB12 MT; -GLYB5TAB7 PO
[2019-07-18] MEDS ORDERED: DILTIAZEM HCL 5MG/ML 5ML VIAL IV ONE (10:30)
[2019-07-18 10:32] LABS: HEMATOCRIT. 33.8 % (36.0-48.0); MEAN CORPUSCULAR VOLUME 89.6 fL (81.0-99.0); MEAN PLATELET VOLUME 9.2 fl (7.4-10.4); PLATELET 102 x1000/uL (130-400); RED BLOOD CELL COUNT 3.77 mill/uL (4.2-5.4); RED CELL DISTRIBUTION WIDTH 14.9 % (11.6-14.6)
[2019-07-18 10:39] LABS: CHLORIDE 102 mEq/L (98-107); PROTHROMBIN TIME 10.5 sec (9.6-11.0)
[2019-07-18] MEDS ORDERED: SODIUM CHLORIDE 0.9% 500 ML IV ONE (10:45)
[2019-07-18 11:14] LABS: PLATELET ESTIMATE DECREASED
[2019-07-18] MEDS ORDERED: ONDANSETRON HCL 4MG/2ML INJ IV PRN (13:00)
[2019-07-18] MEDS ORDERED: DEXTROSE 50% WATER 50ML SYRINGE IV PRN (13:00)
[2019-07-18] MEDS ORDERED: ACETAMINOPHEN 325MG TABLET PO PRN (13:00)
[2019-07-18] MEDS: BLOOD SUGAR DIAGNOSTIC STRIP TEST SCH ×3 (13:09→21:00)
[2019-07-18] MEDS: INSULIN LISPRO 100 UNITS/ML SUBCUT SCH ×3 (13:45→21:00)
[2019-07-18 14:30] VITALS: BP 147/76
[2019-07-18] MEDS: ENOXAPARIN 60MG/0.6ML SYR SUBCUT SCH (15:00)
[2019-07-18 16:00] VITALS: BP 135/70
[2019-07-18] MEDS: DILTIAZEM HCL 60MG TABLET PO SCH (17:59)
[2019-07-18 18:00] VITALS: BP 158/73
[2019-07-18 20:00] VITALS: BP 100/76
[2019-07-18 22:28] VITALS: BP 155/80
[2019-07-19] VITALS (12 sets, daily range): BP systolic 122–172; BP diastolic 60–87
[2019-07-19] MEDS: DILTIAZEM HCL 60MG TABLET PO SCH ×4 (01:57→18:52)
[2019-07-19 06:35] LABS: HEMATOCRIT. 28.6 % (36.0-48.0); HEMOGLOBIN. 9.3 g/dL (12.0-16.0); MEAN CORPUSCULAR HEMOGLOBIN 29.2 pg (28.0-32.0); MEAN CORPUSCULAR VOLUME 90.2 fL (81.0-99.0); MEAN PLATELET VOLUME 9.2 fl (7.4-10.4); PLATELET 89 x1000/uL (130-400); RED BLOOD CELL COUNT 3.18 mill/uL (4.2-5.4); RED CELL DISTRIBUTION WIDTH 15.2 % (11.6-14.6)
[2019-07-19 06:58] LABS: PHOSPHORUS 4.3 mg/dL (2.5-4.9)
[2019-07-19] MEDS: INSULIN LISPRO 100 UNITS/ML SUBCUT SCH ×4 (07:20→20:11)
[2019-07-19] MEDS: BLOOD SUGAR DIAGNOSTIC STRIP TEST SCH ×4 (07:39→20:04)
[2019-07-19 08:43] LABS: PLATELET ESTIMATE DECREASED
[2019-07-19] MEDS: ENOXAPARIN 60MG/0.6ML SYR SUBCUT SCH (15:00)
[2019-07-20] VITALS (12 sets, daily range): BP systolic 130–152; BP diastolic 66–77
[2019-07-20] MEDS: DILTIAZEM HCL 60MG TABLET PO SCH ×5 (00:28→23:35)
[2019-07-20 06:46] LABS: HEMATOCRIT. 29.8 % (36.0-48.0); HEMOGLOBIN. 9.6 g/dL (12.0-16.0); MEAN CORPUSCULAR HEMOGLOBIN 29.1 pg (28.0-32.0); MEAN CORPUSCULAR VOLUME 90.6 fL (81.0-99.0); MEAN PLATELET VOLUME 9.4 fl (7.4-10.4); PLATELET 109 x1000/uL (130-400); RED BLOOD CELL COUNT 3.29 mill/uL (4.2-5.4); RED CELL DISTRIBUTION WIDTH 14.9 % (11.6-14.6)
[2019-07-20] MEDS: INSULIN LISPRO 100 UNITS/ML SUBCUT SCH ×5 (07:20→20:42)
[2019-07-20] MEDS: BLOOD SUGAR DIAGNOSTIC STRIP TEST SCH ×4 (07:32→20:42)
[2019-07-20 10:01] LABS: PLATELET ESTIMATE SLIGHTLY DECREASED
[2019-07-20] MEDS ORDERED: ENOXAPARIN 80MG/0.8ML SYR SUBCUT SCH (15:00)
[2019-07-20] MEDS ORDERED: PHENOL/SODIUM PHENOLATE 1.4% SRPAY 177ML MM PRN (17:15)
[2019-07-20] MEDS: THROAT LOZENGES-BENZOCAINE/MENTH/CETYLPYRD CL LOZENGES MM PRN (17:43)
[2019-07-21] VITALS (8 sets, daily range): BP systolic 137–167; BP diastolic 68–85
[2019-07-21] MEDS: DILTIAZEM HCL 60MG TABLET PO SCH ×2 (05:46→11:48)
[2019-07-21] MEDS: BLOOD SUGAR DIAGNOSTIC STRIP TEST SCH ×2 (06:12→11:50)
[2019-07-21] MEDS: THROAT LOZENGES-BENZOCAINE/MENTH/CETYLPYRD CL LOZENGES MM PRN ×2 (06:25→11:53)
[2019-07-21 06:34] LABS: HEMATOCRIT. 29.4 % (36.0-48.0); HEMOGLOBIN. 9.5 g/dL (12.0-16.0); MEAN CORPUSCULAR VOLUME 89.5 fL (81.0-99.0); MEAN PLATELET VOLUME 9.3 fl (7.4-10.4); PLATELET 108 x1000/uL (130-400); RED BLOOD CELL COUNT 3.29 mill/uL (4.2-5.4); RED CELL DISTRIBUTION WIDTH 14.6 % (11.6-14.6)
[2019-07-21] MEDS: INSULIN LISPRO 100 UNITS/ML SUBCUT SCH ×2 (07:20→12:20)
[2019-07-21 08:19] LABS: CHLORIDE 108 mEq/L (98-107)
[2019-07-21 08:27] LABS: PHOSPHORUS 4.3 mg/dL (2.5-4.9)
[2019-07-21 10:30] LABS: PLATELET ESTIMATE DECREASED
[2019-07-21] MEDS ORDERED: DILT240C91 MT (11:37)
[2019-07-21] MEDS ORDERED: APIX2.5T MT (11:37)
[2019-07-21] MEDS ORDERED: DILTIAZEM HCL 120MG CAPSULE CD 24HR PO SCH (17:00)
== END 2019-07-21 13:48 | disposition home or self-care (01) | DRG 308 ==
LOC: ER 09:46 → 3WST 11:32 → EDBEDREQSVC 11:38 → EDBEDREQ 11:38 → ENRESERV 13:44 → 3WST 15:30
PROVIDERS: ADMIT Internal Medicine; ATTEND Internal Medicine
PROC: 5A1D70Z Performance of Urinary Filtration, Intermittent, Less than 6 Hours Per Day (ICD-10-PCS; 2019-07-18)
PROC: 5A1D70Z Performance of Urinary Filtration, Intermittent, Less than 6 Hours Per Day (ICD-10-PCS; principal; 2019-07-21)
DX: I48.0 Paroxysmal atrial fibrillation (principal); N18.6 End stage renal disease; I12.0 Hypertensive chronic kidney disease with stage 5 chronic kidney disease or end stage renal disease; N25.81 Secondary hyperparathyroidism of renal origin; I27.20 Pulmonary hypertension, unspecified; D69.6 Thrombocytopenia, unspecified; D64.9 Anemia, unspecified; E11.22 Type 2 diabetes mellitus with diabetic chronic kidney disease; R07.89 Other chest pain; T46.2X6A Underdosing of other antidysrhythmic drugs, initial encounter; Y92.89 Other specified places as the place of occurrence of the external cause; Z99.2 Dependence on renal dialysis; I25.2 Old myocardial infarction; Z82.49 Family history of ischemic heart disease and other diseases of the circulatory system; Z88.0 Allergy status to penicillin; Z91.011 Allergy to milk products
CPT/HCPCS: 36415; 71045; 80048; 80053; 82962; 83735; 83880; 84100; 84484; 85025; 87804; 93005; 93970; 99291; J1650; J1815; J3490; J7040